=== PATIENT | female | born 1990 | race African-American/Black ===

== ENCOUNTER 2017-05-08 14:47 | Emergency (ER) | payer BC, OTHER ==
--- NOTE | 2017-05-08 16:13 | RADIOLOGY REPORT (SQ) ---
EXAM DESCRIPTION: KNEE LEFT 4 VIEW COMPLETED DATE/TIME: 05/08/2017 4:02 pm REASON FOR STUDY: pain COMPARISON: None. NUMBER OF VIEWS: Four views. TECHNIQUE: AP, lateral, and both oblique radiographic images acquired of the left knee. LIMITATIONS: None. FINDINGS: MINERALIZATION: Normal. BONES: No acute fracture or dislocation. No worrisome bone lesions. JOINT: No effusion. SOFT TISSUES: No soft tissue swelling. No radio-opaque foreign body. OTHER: No other significant finding. IMPRESSION: NEGATIVE STUDY OF THE LEFT KNEE. NO RADIOGRAPHIC EVIDENCE OF ACUTE INJURY. TECHNICAL DOCUMENTATION: JOB ID: [id number] [employer]- All Rights Reserved
--- NOTE | 2017-05-08 17:08 | ER Document Report ---
ED General - General Mode of Arrival: Ambulatory Information source: Patient TRAVEL OUTSIDE OF THE [place] IN LAST 30 DAYS: Yes COUNTRY TRAVELED TO/FROM: [facility] - [facility] Onset: Other Onset/Duration: Sudden, Worse Quality of pain: Achy Severity: Mild Pain Level: 1 Associated symptoms: Other Exacerbated by: Movement, Walking Relieved by: Denies Similar symptoms previously: Yes Recently seen / treated by doctor: Yes - General Chief Complaint: Knee Pain Stated Complaint: LEFT KNEE PAIN, SWELLING Time Seen by Provider: 05/08/17 15:53 Notes: 26-year-old female presents with complaints of left knee pain swelling is worsened after she was doing Jil patient notes symptoms have been intermittent over the past year, she was seen by an orthopedic doctor. After the last time they thought it was just a sprain of her knee. Patient notes that with rest it improves but then when she works out further he gets worse. Patient notes she worked out today and now is having severe pain in the knee with mild swelling. She denies any other injuries is able to ambulate ( WESLY ALVARADO) - Related Data Allergies/Adverse Reactions: Sulfa (Sulfonamide Antibiotics) Allergy (Verified 05/08/17 14:50) Generalized Itching Past Medical History - Social History Smoking Status: Never Smoker Cigarette use (# per day): No Chew tobacco use (# tins/day): No Smoking Education Provided: No Frequency of alcohol use: Social Family History: Reviewed & Not Pertinent Patient has suicidal ideation: No Patient has homicidal ideation: No Pulmonary Medical History: Reports: Hx Asthma - due to seasonal allergies Renal/ Medical History: Denies: Hx Peritoneal Dialysis Review of Systems - Review of Systems Notes: REVIEW OF SYSTEMS: CONSTITUTIONAL : Denies fever, chills, or sweats. Denies recent illness. EENT: Denies eye, ear, throat, or mouth pain or symptoms. Denies nasal or sinus congestion or discharge. Denies throat, tongue, or mouth swelling or difficulty swallowing. CARDIOVASCULAR: Denies chest pain. Denies palpitations or racing or irregular heart beat. Denies ankle edema. RESPIRATORY: Denies cough, cold, or chest congestion. Denies shortness of breath, difficulty breathing, or wheezing. GASTROINTESTINAL: Denies abdominal pain or distention. Denies nausea, vomiting , or diarrhea. Denies blood in vomitus, stools, or per rectum. Denies black, tarry stools. Denies constipation. GENITOURINARY: Denies difficulty urinating, painful urination, burning, frequency, blood in urine, or discharge. FEMALE GENITOURINARY: Denies vaginal bleeding, heavy or abnormal periods, irregular periods. Denies vaginal discharge or odor. MUSCULOSKELETAL: Admits left knee pain SKIN: Denies rash, lesions or sores. HEMATOLOGIC : Denies easy bruising or bleeding. LYMPHATIC: Denies swollen, enlarged glands. NEUROLOGICAL: Denies confusion or altered mental status. Denies passing out or loss of consciousness. Denies dizziness or lightheadedness. Denies headache. Denies weakness or paralysis or loss of use of either side. Denies problems with gait or speech. Denies sensory loss, numbness, or tingling. Denies seizures. PSYCHIATRIC: Denies anxiety or stress. Denies depression, suicidal ideation, or homicidal ideation. ALL OTHER SYSTEMS REVIEWED AND NEGATIVE. PHYSICAL EXAMINATION: GENERAL: Well-appearing, well-nourished and in no acute distress. HEAD: Atraumatic, normocephalic. EYES: Pupils equal round and reactive to light, extraocular movements intact, conjunctiva are normal. ENT: Nares patent, oropharynx clear without exudates. Moist mucous membranes. NECK: Normal range of motion, supple without lymphadenopathy LUNGS: Breath sounds clear to auscultation bilaterally and equal. No wheezes rales or rhonchi. HEART: Regular rate and rhythm without murmurs ABDOMEN: Soft, nontender, nondistended abdomen. No guarding, no rebound. No masses appreciated. Female : deferred Musculoskeletal: Normal range of motion, no pitting or edema. No cyanosis. All the fusion of left knee noted there is no laxity NEUROLOGICAL: Cranial nerves grossly intact. Normal speech, normal gait. Normal sensory, motor exams PSYCH: Normal mood, normal affect. SKIN: Warm, Dry, normal turgor, no rashes or lesions noted. Dictation was performed using [employer] voice recognition software (WESLY ALVARADO) - Vital signs Vitals: Temp Pulse Resp BP Pulse Ox 98.2 F 79 16 121/77 100 05/08/17 14:57 05/08/17 14:57 05/08/17 14:57 05/08/17 14:57 05/08/17 14:57 Course - Diagnostic Test Radiology reviewed: Image reviewed, Reports reviewed - Re-evaluation Re-evalutation: 05/08/17 19:12 Patient is able to flex extend bend her knee with no difficulty, given that the symptoms get better and worsen depending on activity I believe is more of a sprained an actual tear. Patient has been given very strict return precautions will be placed in a knee brace as well as crutches. I did offer anti- inflammatories the patient notes that she had a gastric bypass does not wish to be on anti-inflammatories therefore we will place her on steroids, she notes that she has no history of diabetes and has no concerns with the medication Patient instructed on risks and benefits of medications prescribed. Denies any concerns regarding such. 05/08/17 19:13 After performing a Medical Screening Examination, I estimate there is LOW risk for INTRACRANIAL HEMORRHAGE, UNSTABLE SPINE FRACTURE, CENTRAL CORD SYNDROME, CAUDA EQUINA, THORACIC AORTIC DISSECTION, PNEUMOTHORAX, PERFORATED BOWEL, RUPTURED ABDOMINAL AORTIC ANEURYSM, ACUTE TENDON RUPTURE, COMPARTMENT SYNDROME, or OPEN FRACTURE, thus I consider the discharge disposition reasonable. Also, there is no evidence or peritonitis, sepsis, or toxicity. I have reevaluated this patient multiple times and no significant life threatening changes are noted. The patient and I have discussed the diagnosis and risks, and we agree with discharging home to follow-up with their primary doctor with the understanding that symptoms and presentations can change. We also discussed returning to the Emergency Department immediately if new or worsening symptoms occur. We have discussed the symptoms which are most concerning (e.g., bloody stool, fever, changing or worsening pain, vomiting) that necessitate immediate return. (WESLY ALVARADO) - Vital Signs Vital signs: Temp Pulse Resp BP Pulse Ox 98.2 F 97 16 101/55 L 99 05/08/17 14:57 05/08/17 18:49 05/08/17 18:49 05/08/17 18:49 05/08/17 18:49 Discharge - Discharge Clinical Impression: Strain of tendon Knee injury Qualifiers: Encounter type: initial encounter Laterality: left Qualified Code(s): S89.92XA - Unspecified injury of left lower leg, initial encounter Condition: Stable Disposition: HOME, SELF-CARE Instructions: Suspected Internal Knee Injury ([facility]) Prescriptions: Prednisone [Deltasone 20 mg Tablet] 3 tab PO DAILY 5 Days tablet Referrals: VÍCTOR FIGUEROA MD [ACTIVE STAFF] - Follow up in 3-5 days
[2017-05-08 18:51] VITALS: BP 101/55
== END 2017-05-08 17:25 | disposition home or self-care (01) ==
LOC: ER 14:47
DX: S86.912A Strain of unspecified muscle(s) and tendon(s) at lower leg level, left leg, initial encounter (principal); M25.562 Pain in left knee; X58.XXXA Exposure to other specified factors, initial encounter; J45.909 Unspecified asthma, uncomplicated; Z98.84 Bariatric surgery status; Z88.2 Allergy status to sulfonamides
CPT/HCPCS: 99283